=== PATIENT | female | born 1950 | race Asian ===

== ENCOUNTER 2016-11-06 20:18 | Emergency (ER) | payer OTHER ==
[~2016-11-06] VITALS: Ht 152.4 cm; Wt 55.7 kg
[2016-11-06 20:23] VITALS: BP 136/79
[2016-11-06] MEDS ORDERED: PROPARACAINE OPHTH 0.5%, 15ML ONE (20:36)
[2016-11-06] MEDS ORDERED: FLUORESCEIN OPHTHALMIC 1 MG STRIP ONE (20:36)
== END 2016-11-06 21:37 | disposition home or self-care (01) ==
LOC: ED 21:29
DX: H11.32 Conjunctival hemorrhage, left eye (principal)
CPT/HCPCS: 99283